=== PATIENT | male | born 1970 | race Caucasian/White ===

== ENCOUNTER 2017-04-16 16:57 | Emergency (ER) | payer BC, SELFPAY ==
[2017-04-16 17:56] VITALS: BP 123/80; PULSE 62; RESP 18; TEMP 36.3; O2SAT 99; BMI 29.6
--- NOTE | 2017-04-16 18:04 | HMH.EDUTC ---
[facility] [place] Dis[place] Clinical Impression: Acute bronchitis Qualifiers: Bronchitis organism: unspecified organism Qualified Code(s): J20.9 - Acute bronchitis, unspecified Disposition: Home, Self-Care Condition on Discharge: Good Instructions: DI for Acute Bronchitis Additional Instructions: * start antibiotic tomorrow since no pharmacy open tonight and you preferred not to receive the first dose in clinic related to cost. Be sure to complete entire prescription even if feeling better. * Monitor Temp. Follow up if fever develops. * humidifier/vaporizer/hot steamy shower * Inhaler every 4-6 hours as needed like you have been doing. * Mucinex during the day for your cough and cough suppressant only at night. Be sure to drink lots of water. Insurance may not cover a prescription of mucinex. Might be cheaper to get 400mg tablets and take 2 tablets morning, midday and evening all with lots of water. * Tessalon Perles will not cause drowsiness but use at bedtime to help stop cough so that you can get some rest * Start steroid tomorrow since you had requested injection in clinic. Helps with inflammation therefore, cough and wheezing. Follow directions on package. Rvwd side effects. Pt reports they have taken them before. * Since you preferred to not have chest xray today, BE SURE, to follow up immediately with new, worsening or persisting symptoms. Prescriptions: Azithromycin [Z-David 250mg Tab] 250 mg PO UD DOSE PK #6 tab Benzonatate [Benzonatate 200mg Cap] 200 mg PO HS PRN #14 cap PRN Reason: Cough predniSONE [Deltasone 10mg tablet] 10 mg PO BID #8 tab Referrals: Felipe Nick MD [Primary Care Provider] - (Follow up IMMEDIATELY for new or worsening symptoms OR no noticeable improvement over the next 48-72 hours. 911 for difficulty breathing) Time of Disposition: 18:21 Medical Decision Making Vital Signs: 04/16/17 17:56 Temperature 97.4 F L Temperature Source Temporal Artery Scan Pulse Rate [Right Radial] 62 Respiratory Rate 18 Blood Pressure [Right Arm] 123/80 Blood Pressure Mean [Right Arm] 94 02 Sat by Pulse Oximetry 99 Oxygen Delivery Method Room Air Orders (Tests/Meds): ED MEDICATIONS Discontinued Medications Generic Name Dose Route Start Last Admin Trade Name Freq PRN Reason Stop Dose Admin Methylprednisolone Sodium Succinate 125 mg 04/16/17 18:15 Solu-Medrol 125mg/2ml Vial IM 04/16/17 18:16 ONCE ONE - Frankie Inquiry Pt receiving controlled substance: No [facility] [place] HPI - General Stated complaint: Chest Congestion Time Seen by Provider: 04/16/17 18:04 Mode of Arrival: Family Vehicle Source of Information: Patient, Parent(s) Limitations: No Limitations Description of Symptoms (Recalled from Triage Doc. by RN): PT C/O HEAD AND CHEST CONGESTION FOR 2 WEEKS. HEENT Symptoms (Recalled from RN notes): Yes (HEAD CONGESTION) Resp Symptoms (Recalled from RN notes): Yes (CHEST CONGESTION AND COUGH) Skin Symptoms (Recalled from RN notes): No MS Symptoms (Recalled from RN notes): No Functional Status (Recalled from RN notes): NA - History of Present Illness Provider Complaint: c/o cough now for nearly 2 weeks. Started with head cold and seemed to do well with antihistamines but since moving to chest approx one week ago, nothing helping. Allergy medications haven't helped. Albuterol inhaler (from previous illnesses. Denies COPD, asthma, lung problems) helps open airways, he breaths easier, gets out unknown color sputum but hours later, the same again . Nonsmoker. no fever. SOA with exertion at times. Intermittent wheezing. 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 - Related Data Previous Rx's Medication Instructions Recorded Azithromycin [Z-David 250mg Tab] 250 mg PO UD DOSE PK #6 tab 04/16/17 Benzonatate [Benzonatate 200mg Cap] 200 mg PO HS PRN #14 cap 04/16/17 predniSONE [Deltasone 10mg tablet] 10 mg PO BID #
--- NOTE | 2017-04-16 18:15 | ED_ITS ---
[facility] [place] Impression: Acute bronchitis Qualifiers: Bronchitis organism: unspecified organism Qualified Code(s): J20.9 - Acute bronchitis, unspecified Disposition: Home, Self-Care Condition on Discharge: Good Instructions: DI for Acute Bronchitis Additional Instructions: * start antibiotic tomorrow since no pharmacy open tonight and you preferred not to receive the first dose in clinic related to cost. Be sure to complete entire prescription even if feeling better. * Monitor Temp. Follow up if fever develops. * humidifier/vaporizer/hot steamy shower * Inhaler every 4-6 hours as needed like you have been doing. * Mucinex during the day for your cough and cough suppressant only at night. Be sure to drink lots of water. Insurance may not cover a prescription of mucinex. Might be cheaper to get 400mg tablets and take 2 tablets morning, midday and evening all with lots of water. * Tessalon Perles will not cause drowsiness but use at bedtime to help stop cough so that you can get some rest * Start steroid tomorrow since you had requested injection in clinic. Helps with inflammation therefore, cough and wheezing. Follow directions on package. Rvwd side effects. Pt reports they have taken them before. * Since you preferred to not have chest xray today, BE SURE, to follow up immediately with new, worsening or persisting symptoms. Prescriptions: Azithromycin [Z-David 250mg Tab] 250 mg PO UD DOSE PK #6 tab Benzonatate [Benzonatate 200mg Cap] 200 mg PO HS PRN #14 cap PRN Reason: Cough predniSONE [Deltasone 10mg tablet] 10 mg PO BID #8 tab Referrals: Felipe Nick MD [Primary Care Provider] - (Follow up IMMEDIATELY for new or worsening symptoms OR no noticeable improvement over the next 48-72 hours. 911 for difficulty breathing) Time of Disposition: 18:21 Medical Decision Making Vital Signs: 04/16/17 17:56 Temperature 97.4 F L Temperature Source Temporal Artery Scan Pulse Rate [Right Radial] 62 Respiratory Rate 18 Blood Pressure [Right Arm] 123/80 Blood Pressure Mean [Right Arm] 94 02 Sat by Pulse Oximetry 99 Oxygen Delivery Method Room Air Orders (Tests/Meds): ED MEDICATIONS Discontinued Medications Generic Name Dose Route Start Last Admin Trade Name Freq PRN Reason Stop Dose Admin Methylprednisolone Sodium Succinate 125 mg 04/16/17 18:15 Solu-Medrol 125mg/2ml Vial IM 04/16/17 18:16 ONCE ONE - Frankie Inquiry Pt receiving controlled substance: No [facility] [place] - General Stated complaint: Chest Congestion Time Seen by Provider: 04/16/17 18:04 Mode of Arrival: Family Vehicle Source of Information: Patient, Parent(s) Limitations: No Limitations Description of Symptoms (Recalled from Triage Doc. by RN): PT C/O HEAD AND CHEST CONGESTION FOR 2 WEEKS. HEENT Symptoms (Recalled from RN notes): Yes (HEAD CONGESTION) Resp Symptoms (Recalled from RN notes): Yes (CHEST CONGESTION AND COUGH) Skin Symptoms (Recalled from RN notes): No MS Symptoms (Recalled from RN notes): No Functional Status (Recalled from RN notes): NA - History of Present Illness Provider Complaint: c/o cough now for nearly 2 weeks. Started with head cold and seemed to do well with antihistamines but since moving to chest approx one week ago, nothing helping. Allergy medications haven't helped. Albuterol inhaler (from previous illnesses. Denies COPD, asthma, lung problems) helps open airways, he breaths easier, gets out unknow
[2017-04-16 18:39] VITALS: BP 120/78; PULSE 60; RESP 16; TEMP 36.1; O2SAT 99
== END 2017-04-16 18:49 | disposition home or self-care (01) ==
PROVIDERS: Emergency Provider Nurse Practitioner Family; Family Provider Family Medicine; PCP Family Medicine
DX: J20.9 Acute bronchitis, unspecified (principal); K21.9 Gastro-esophageal reflux disease without esophagitis; E78.5 Hyperlipidemia, unspecified
CPT/HCPCS: 96372; 99202

== ENCOUNTER → 2017-07-19 08:12 | Outpatient (CLI) | payer BC, SELFPAY | PROVIDERS: Family Provider Family Medicine; PCP Family Medicine; Visit Provider Family Medicine | DX: I20.8 Other forms of angina pectoris (principal); E78.2 Mixed hyperlipidemia | CPT/HCPCS: 93017 ==

== ENCOUNTER 2018-02-12 08:00 | Outpatient (RCR) | payer BC, SELFPAY ==
--- NOTE | 2017-12-18 08:46 | HMH.PTOPEV ---
PT Outpatient Evaluation Rehab PT Outpatient Evaluation Start: 12/18/17 08:09 Freq: Status: Active Protocol: Document 12/18/17 08:38 PHORANABELLE (Rec: 12/18/17 08:46 PHORNE [id number]) Electronically Signed By Freddy Khan, PT 12/18/17 08:38 Outpatient Therapy Subjective History Subjective History Pt is 47 yowm who presents with c/o pain in the right shld x ~ 1 yr, gradually worse . He reports pain increased with playing basketball or throwing, as well as housework and sleeping. He states, I sleep with my arm up over my head and that seems to bother it. He reports no pain at rest and no numbness or tingling in the right UE. Chief Complaint Pain Symptom Type Ache Sharp Symptoms Relieved By Rest/Positioning Symptoms Aggravated By Physical Activity Prior Functional Limitations Housework Sleeping Recreation Activity Current Functional Limitations Housework Sleeping Recreation Activity Symptom Description Intermittent Activity Dependent Level of pain today (0-10) 0 Pain scale - at its worst (0-10) 6 Shoulder/Elbow Eval Shoulder Objective Measurements Palpation Tenderness tenderness over the bicipital tendon right shoulder exam standard tenderness over the SA bursa shoulder right exam standard Posture Shoulder Posture Sitting Position (L) Rounded (R) Rounded Shoulder MMT Right Shoulder Abduction Strength Grade 4 Good Shoulder External Rotation Strength 4 Good Grade Shoulder Special Tests impingement sign present shoulder exam right standard Shoulder Cross-Over Impingement Test Negative Left Positive Right Shoulder Linder-Basilio Impingement Negative Left Test Positive Right Shoulder Neer Impingement Test Negative Left Negative Right Shoulder [place] Test Negative Left Negative Right Elbow Objective Measurements Outpatient Therapy Assessment Impairments Problems/Impairmments Palpation Tenderness Impaired Strength Impaired Household Care Impaired Recreational
--- NOTE | 2018-01-18 10:05 | HMH.RHREAS ---
Rehab Reassessment Rehab OP Re-assessment Start: 01/18/18 10:02 Freq: Status: Active Protocol: Document 01/18/18 10:02 DONALD (Rec: 01/18/18 10:05 DONALD [id number]) Electronically Signed By Freddy Khan, PT 01/18/18 10:02 Rehab Re-assessment Subjective Subjective Pt reports continued soreness, but less frequent than previously. Objective Objective Notes MMT right UE: ABD = 4+/5, IR = 4+/5, otherwise 5/5 throughout. Pain: 3/10 at worst. Assessment Progress Assessment Progressing as Expected Assessment Notes Continues to need further strengthening, but activity level and pain are improved. Patient goals met ST,2,4,[address] LT,2,3,4,5 Revised Goals none Plan Plan Continue per initial POC. Frequency of Therapy 2x/wk Duration of therapy 8 wks Time and Billing Re-Eval Time 15 Re-Eval Billing Units 1 PHYSICIAN CERTIFICATION: I certify the specified therapy services for Brian Dykes are required, authorized, and reviewed every 30 days.
== END 2018-02-12 08:05 | disposition home or self-care (01) ==
LOC: PT 08:00
PROVIDERS: Visit Provider Family Medicine
DX: M75.101 Unspecified rotator cuff tear or rupture of right shoulder, not specified as traumatic (principal)
CPT/HCPCS: 97010; 97014; 97016; 97033; 97035; 97110; 97163; 97164; G0283

== ENCOUNTER → 2018-06-26 08:02 | Outpatient (POV) | payer BC, SELFPAY | PROVIDERS: Visit Provider Dermatology | DX: Z00.00 Encounter for general adult medical examination without abnormal findings (principal) ==

== ENCOUNTER → 2019-02-19 08:04 | Outpatient (POV) | payer BC, SELFPAY | PROVIDERS: Visit Provider Dermatology | DX: Z00.00 Encounter for general adult medical examination without abnormal findings (principal) ==

== ENCOUNTER → 2020-03-31 14:15 | Outpatient (CLI) | payer BC, SELFPAY ==
--- NOTE | 2020-03-31 14:20 | XR_ITS ---
PROCEDURE: XR KNEE LT 3V CLINICAL INDICATION: LT KNEE SWELLING Left knee swelling, injured playing basketball COMPARISON: No exams were available for comparison FINDINGS: There is no fracture or dislocation. There is no compartmental narrowing seen on nonweightbearing x-ray views. There is no significant degenerative change. There is a moderate joint space effusion. IMPRESSION: Moderate joint space effusion. Dictated by: Heather Mixon 03/31/2020 16:38 Heather Mixon in [place] 03/31/2020 16:38
== END ==
PROVIDERS: PCP Family Medicine; Visit Provider Family Medicine
DX: M25.462 Effusion, left knee (principal)
CPT/HCPCS: 73562

== ENCOUNTER → 2020-06-23 15:43 | Outpatient (CLI) | payer BC, SELFPAY ==
--- NOTE | 2020-06-23 15:59 | XR_ITS ---
PROCEDURE: XR KNEE RT 3V CLINICAL INDICATION: RT ANTERIOR KNEE PAIN COMPARISON: CR XR KNEE LT 3V from 03/31/2020 FINDINGS: No acute fractures or dislocations. Bone density is normal. The joint spaces are preserved. There is suprapatellar joint effusion. Visualized soft tissues are otherwise unremarkable. IMPRESSION: Suprapatellar joint effusion. Otherwise unremarkable study. Dictated by: Brit Ding 06/23/2020 16:42 Brit Ding in OV 06/23/2020 16:42
== END ==
PROVIDERS: PCP Family Medicine; Visit Provider Family Medicine
DX: M25.561 Pain in right knee (principal)
CPT/HCPCS: 73562

== ENCOUNTER 2020-09-01 16:05 | Outpatient (RCR) | payer BC, SELFPAY ==
--- NOTE | 2020-09-01 17:09 | HMH.PTOPEV ---
PT Outpatient Evaluation Rehab PT Outpatient Evaluation Start: 09/01/20 16:31 Freq: Status: Active Protocol: Document 09/01/20 16:32 ALEXTRINI (Rec: 09/01/20 17:09 ADELSO [id number]) Electronically Signed By Jose Martin Childress, PT 09/01/20 16:32 Outpatient Therapy Subjective History Subjective History This is the initial Physical Therapy evaluation for la nena Dykes. Pt is a 50 y/o male referred to PT for c/o B knee pain. Pt rpeorts he regularly plays basketball at [employer] every month. Pt reports in March he played an uneventful game of basketball, but reports the next day his L knee was swollen and he had significant pain. Pt rpeorts knee improved and function returned. Pt states in April he played again w/out incident but reports the next day his R knee was swollen and painful . Pt reprots that the R>L knee has continued to be painful and feels full of pressure . Pt states he got COVID shots day prior to each knee swelling. Chief Complaint Pain,Stiff,Swelling Symptom Type Ache,Throb,Dull Symptoms Relieved By Rest/Positioning,Brace/Support Symptoms Aggravated By Physical Activity Prior Functional Limitations None Current Functional Limitations Standing,Squatting,Recreation Activity,Stairs Symptom Description Intermittent Hip/Knee Eval Gait Observation General Gait Pattern Observation No Deviations/Normal Assistive Device Assistive Devices None / NA Palpation Tenderness bilateral Knee Palpation Finding None/Normal Hip Palpation Findings None/Normal MMT Hip Strength Reason Not Measured WFL Knee Strength Reason Not Measured WFL ROM Hip ROM Reason Not Measured Within Functional Limits Knee ROM Reason Not Measured Within Functional Limits Special Tests Knee Apprehension Test Negative Left,Negative Right Knee Medial-Lateral Grind Test Negative Left,Negative Right Knee Valgus Stress Test Negative Left,Negative Right Knee Varus Stress Test Negative Left,Negative Right Knee Mauro Test Negative Left,Negative Right Patella Apprehension Test Negative Left,Negative Right Patellar Grind Test
== END 2020-09-01 16:10 | disposition home or self-care (01) ==
LOC: PT 16:05
PROVIDERS: PCP Family Medicine; Visit Provider Orthopaedic Surgery
DX: M17.11 Unilateral primary osteoarthritis, right knee (principal); M17.12 Unilateral primary osteoarthritis, left knee
CPT/HCPCS: 97110; 97163

== ENCOUNTER 2020-09-03 12:21 | Emergency (ER) | payer BC, SELFPAY ==
--- NOTE | 2020-09-03 12:36 | HMH.EDUTC ---
[facility] [place] Disposition Clinical Impression: Exposure to COVID-19 virus Disposition: Home, Self-Care Condition on Discharge: Good Instructions: Preventing the Spread of Coronavirus Discharge Instructions Additional Instructions: Drink plenty of fluids. Take tylenol for pain or fever. Return if you begin to have difficulty breathing. Follow up with your regular doctor. GO TO THE ER FOR ANY WORSENING SYMPTOMS Referrals: Felipe Nick MD [Primary Care Provider] - Time of Disposition: 12:36 Medical Decision Making - Medical Records Medical records reviewed: No: I reviewed the patient's medical records. - Frankie Inquiry Pt receiving controlled substance: No Vital Signs: 09/03/20 13:18 09/03/20 13:52 Temperature 98.4 F 98 F Temperature Source Oral Pulse Rate 95 H Pulse Rate [Left] 75 Respiratory Rate 16 16 Blood Pressure 139/81 Blood Pressure [Right Arm] 133/86 Blood Pressure Mean [Right Arm] 101 02 Sat by Pulse Oximetry 98 Oxygen Delivery Method Room Air [facility] [place] HPI - General Stated complaint: Covie test Time Seen by Provider: 09/03/20 13:30 - History of Present Illness Provider Complaint: Multiple members of his family have covid-19. He denies any symptoms so far. - Related Data Home Medications Medication Instructions Recorded Confirmed Fexofenadine HCl [Aretha 180 mg PO DAILY 11/18/18 08/25/20 Allergy] Montelukast Sodium [Singulair 10mg 10 mg PO PM 11/18/18 08/25/20 tablet] Pantoprazole Sodium [Protonix 40mg 40 mg PO DAILY 11/18/18 08/25/20 tablet] Rosuvastatin Calcium 5 mg PO HS 11/18/18 08/25/20 Allergies Allergy/AdvReac Type Severity Reaction Status Date / Time No Known Allergies Allergy Verified 09/03/20 13:23 [facility] History - Hepatitis A Screen Attestation statement:: This patient has been screened for Hepatitis A risk factors. I have reviewed the patient's past medical history: Yes Medical History: Reports:: Gastroesophageal Reflux Disease(GERD), Hyperlipidemia Denies:: Cancer, Diabetes Mellitus Type 1, Diabetes Mellitus Type 2, Hypertension, MRSA Other Medical History: Reports: Other Other Surgeries: Yes: Colonoscopy, Other Amputation: No Fractures: No - Social History Smoking Status: Never smoker Alcohol Intake: never Occupational Status: employed Family Hx:: No significant family history ROS Obtained: Yes All systems reviewed & no additional complaints - Constitutional Constitutional: Reports system reviewed and no additional complaints, except as docu - Eyes Eyes: Reports system reviewed and no additional complaints, except as docu - ENT Ears, Nose, Mouth, and Throat: Reports system reviewed and no additional complaints, except as docu - Cardiovascular Cardiovascular: Reports system reviewed and no additional complaints, except as docu - Respiratory Respiratory: Reports system reviewed and no additional complaints, except as docu - Gastrointestinal Gastrointestingal: Reports: system reviewed and no additional complaints, except as docu Physical Exam - General General appearance: alert, in no apparent distress - Head Head exam: atraumatic, normocephalic, normal inspection - Eye Eye exam: Present: normal appearance, PERRL, EOMI - ENT ENT exam: Present: normal exam, normal oropharynx, mucous membranes moist, TM's normal bilaterally, normal external ear exam - Neck Neck exam: Present: normal inspection, full ROM, trachea midline. Absent: meningismus, lymphadenopathy - Chest Chest inspection: Present: normal inspection, symmetric chest wall rise. Absent: tenderness - Respiratory Respiratory exam: Present: normal lung sounds bilaterally. Absent: respiratory distress - Cardiovascular Cardiovascular exam: Present: regular rate, normal rhythm. Absent: JVD - Abdominal Exam Abdominal exam: Present: soft, normal bowel sounds. Absent: distention, tenderness, guarding - Extremities Exam Extremit
[2020-09-03 13:18] VITALS: BP 133/86; PULSE 75; RESP 16; TEMP 36.9; O2SAT 98; BMI 30.5
[2020-09-03 13:52] VITALS: BP 139/81; PULSE 95; RESP 16; TEMP 36.6
--- NOTE | 2020-09-03 20:39 | PC.NURSE ---
relayed positive covid result to pt
== END 2020-09-03 13:52 | disposition home or self-care (01) ==
PROVIDERS: Emergency Provider Nurse Practitioner Family; PCP Family Medicine
DX: U07.1 COVID-19 (principal); K21.9 Gastro-esophageal reflux disease without esophagitis; E78.5 Hyperlipidemia, unspecified
CPT/HCPCS: 99202; G0463; U0003

== ENCOUNTER → 2020-12-12 19:00 | Outpatient (CLI) | payer BC, SELFPAY | PROVIDERS: PCP Family Medicine; Visit Provider Nurse Practitioner Family | DX: Z20.822 Contact with and (suspected) exposure to COVID-19 (principal) | CPT/HCPCS: C9803; U0003; U0005 ==

== ENCOUNTER → 2021-06-15 11:55 | Outpatient (CLI) | payer BC, SELFPAY ==
--- NOTE | 2021-06-15 | CA_ITS ---
FINAL REPORT TECHNIQUE: Color Doppler, duplex Doppler and compression sonography of the left lower extremity deep venous systems was performed. CLINICAL HISTORY: .Left foot tingling FINDINGS: There is no evidence of deep venous thrombosis from the level of the groin to the calf. The veins are patent and compressible. IMPRESSION: No evidence of deep venous thrombosis left lower extremity. Reviewed, Interpreted and Dictated by Daniel Johnson III, MD Transcribed by Vidhi Wynne Authenticated by Daniel Johnson III, MD on 06/15/2021 01:56:22 PM [facility]
== END ==
PROVIDERS: PCP Nurse Practitioner Family; Visit Provider Nurse Practitioner Family
DX: M79.605 Pain in left leg (principal)
CPT/HCPCS: 93971

== ENCOUNTER 2021-06-29 02:26 | Emergency (ER) | payer BC, SELFPAY ==
[2021-06-29 02:46] VITALS: BP 0/0; PULSE 0; RESP 0; TEMP -17.7; TEMP 0
== END 2021-06-29 03:11 | disposition left against medical advice (07) ==
PROVIDERS: Emergency Provider Emergency Medicine; PCP Family Medicine
DX: Z53.21 Procedure and treatment not carried out due to patient leaving prior to being seen by health care provider (principal)
CPT/HCPCS: 99211

== ENCOUNTER 2021-07-03 11:21 | Emergency (ER) | payer BC, SELFPAY ==
[2021-07-03 12:19] VITALS: BP 118/76; PULSE 90; RESP 19; TEMP 36.7; O2SAT 95; BMI 30.2
[2021-07-03 12:24] LABS: UTC Influenza A Antigen Negative (Negative)
[2021-07-03 12:25] LABS: UTC Influenza B Antigen Negative (Negative)
[2021-07-03 12:31] LABS: Strep Scrn Group A (Rapid) Negative (Negative)
--- NOTE | 2021-07-03 12:42 | HMH.EDUTC ---
[facility] [place] Impression: Left lower lobe pneumonia Qualifiers: Pneumonia type: due to unspecified organism Qualified Code(s): J18.9 - Pneumonia, unspecified organism Disposition: Home, Self-Care Condition on Discharge: Good Additional Instructions: Drink plenty of fluids. Take tylenol for pain or fever. Continue the prednisone and cefdinir as prescribed. Follow up with your regular doctor. GO TO THE ER FOR ANY WORSENING SYMPTOMS The cough medication (promethazine dm) will make you drowsy, so don't drive or operate heavy machinery after taking it. You must follow up with your primary care physician and have a repeat chest x-ray within the next 1 to 2 weeks. This is to make sure the pneumonia is getting better. Prescriptions: Albuterol Sulfate [Albuterol Sulfate Hfa] 2 puffs IH Q6HP PRN 30 Days #1 each PRN Reason: Shortness Of Breath Transmission Status: Received by [facility] Promethazine/Dextromethorphan [Promethazine-Dm Syrup] 5 ml PO Q6HP PRN #240 ml PRN Reason: Cough Transmission Status: Received by [facility] Referrals: Kerri Lombardo APRN [Primary Care Provider] - Time of Disposition: 13:26 Medical Decision Making - Medical Records Medical records reviewed: No: I reviewed the patient's medical records. - Frankie Inquiry Pt receiving controlled substance: No Vital Signs: 07/03/21 12:19 07/03/21 13:36 Temperature 98.1 F 98.1 F Temperature Source Oral Oral Pulse Rate 90 Pulse Rate [Left Radial] 90 Respiratory Rate 19 19 Blood Pressure 118/76 Blood Pressure [Right Arm] 118/76 Blood Pressure Mean [Right Arm] 90 02 Sat by Pulse Oximetry 95 - Lab Data Lab results reviewed: Yes: I reviewed the patient's lab results. Lab Results 07/03/21 12:13: Influenza Type A Ag Negative, Influenza Type B Ag Negative 07/03/21 12:14: Group A Strep Rapid Negative Orders (Tests/Meds): ED MEDICATIONS Discontinued Medications Generic Name Dose Route Start Last Admin Trade Name Freq PRN Reason Stop Dose Admin Ceftriaxone Sodium 1 gm 07/03/21 13:16 07/03/21 13:25 Ceftriaxone 1gm Vial IM 07/03/21 13:17 1 gm ONCE ONE Administration Lidocaine HCl 0 ml 07/03/21 13:16 07/03/21 13:25 Lidocaine 1% 5ml Pf Vial IM 07/03/21 13:17 2 ml ONCE ONE Administration ORDERS Category Date Time Status Strep Screen Confirmation Stat Micro 07/03/21 12:14 Received - Radiology Data #1 Image(s): Chest Image Reviewed: Yes I reviewed the patient's radiology image, Yes I have reviewed radiologist's interpretation [facility] [place] - General Stated complaint: soa, fever, chills Time Seen by Provider: 07/03/21 12:42 Mode of Arrival: Ambulatory Source of Information: Patient Limitations: No Limitations Description of Symptoms (Recalled from Triage Doc. by RN): pt here with c/o cough, fever, chills, shortness of air HEENT Symptoms (Recalled from RN notes): Yes Resp Symptoms (Recalled from RN notes): Yes Skin Symptoms (Recalled from RN notes): No MS Symptoms (Recalled from RN notes): No Functional Status (Recalled from RN notes): wnl - History of Present Illness Provider Complaint: He states that for the past 1 week he has had sinus congestion, chest congestion and a headache at times. He was seen by his pcp and he started cefdinir and a steroid dose pack yesterday, but last night he became more congested so he came here. - Related Data Home Medications Medication Instructions Recorded Confirmed Fexofenadine HCl [Aretha 180 mg PO DAILY 11/18/18 08/25/20 Allergy] Montelukast Sodium [Singulair 10mg 10 mg PO PM 11/18/18 08/25/20 tablet] Pantoprazole Sodium [Protonix 40mg 40 mg PO DAILY 11/18/18 08/25/20 tablet] Rosuvastatin Calcium 5 mg PO HS 11/18/18 08/25/20 Previous Rx's Medication Instructions Recorded Albuterol Sulfate [Albuterol 2 puffs IH Q6HP PRN 30 Days #1 each 07/03/21 Sulfate Hfa] Prometha
--- NOTE | 2021-07-03 12:46 | XR_ITS ---
PROCEDURE INFORMATION: Exam: XR Chest Exam date and time: 07/03/2021 12:46 PM Age: 51 years old Clinical indication: Cough; Additional info: Cough, congestion TECHNIQUE: Imaging protocol: XR of the chest. Views: 2 views. COMPARISON: CR CXR CHEST(2 VIEWS-NOT PORTABLE) 09/15/2016 8:08 AM FINDINGS: Lungs: Patchy left lower lobe region of consolidation. Pleural spaces: Unremarkable. No pleural effusion. No pneumothorax. Heart/Mediastinum: Unremarkable. No cardiomegaly. Bones/joints: Unremarkable. IMPRESSION: Left lower lobe region of consolidation. Findings compatible with pneumonia.
[2021-07-03 13:36] VITALS: BP 118/76; PULSE 90; RESP 19; TEMP 36.7
== END 2021-07-03 13:38 | disposition home or self-care (01) ==
PROVIDERS: Emergency Provider Nurse Practitioner Family; PCP Nurse Practitioner Family
DX: J18.9 Pneumonia, unspecified organism (principal); R51.9 Headache, unspecified; K21.9 Gastro-esophageal reflux disease without esophagitis; E78.5 Hyperlipidemia, unspecified; M79.10 Myalgia, unspecified site; Z20.822 Contact with and (suspected) exposure to COVID-19; Z79.899 Other long term (current) drug therapy
CPT/HCPCS: 71046; 87430; 87804; 96372; 99213; C9803; G0463; J0696; U0003; U0005

== ENCOUNTER 2022-01-23 10:06 | Emergency (ER) | payer BC, SELFPAY ==
[2022-01-23 11:00] VITALS: BP 135/88; PULSE 91; RESP 19; TEMP 36.8; O2SAT 98; BMI 28.8
[2022-01-23 11:13] LABS: Coronavirus 19, PCR Not Detected (NotDetected); Influenza A, PCR Not Detected (NotDetected); Influenza B, PCR Not Detected (NotDetected)
--- NOTE | 2022-01-23 11:23 | EXP.UTC ---
Discharge Plan Disposition Patient Disposition: Home, Self-Care Condition: Good Prescriptions Prescriptions: No Action promethazine-DM 120 ML syrup 5 ml PO Q6HP PRN (Reason: Cough) Qty: 240 0RF albuterol sulfate 8.5 GM HFA aerosol inhaler 2 puffs IH Q6HP PRN (Reason: Shortness Of Breath) 30 Days Qty: 1 5RF fexofenadine 180 MG tablet 180 mg PO DAILY pantoprazole 40 MG tablet,delayed release (DR/EC) 40 mg PO DAILY montelukast 10 MG tablet 10 mg PO PM rosuvastatin 5 MG tablet 5 mg PO HS Referrals Follow up/Referrals: Felipe Vargas MD [Primary Care Provider] - See instructions Activity Restrictions/Add. Instructions Additional Instructions/Restrictions: covid/flu swab was sent to lab, call later today for results. self isolate until test results are known to be negative No sign of a bacterial infection. Likely viral. Viruses can take 7-14 days to run their course. Nasal saline and bulb syringe or nose Ct to remove nasal drainage to help with nasal congestion. Hard to eat, drink, sleep with nasal congestion so important to keep this cleaned out. Monitor temp. Tylenol or Motrin as needed for pain or fever Encourage fluids, water, Gatorade, Powerade, Pedialyte if /toddler/child Warm salt water gargles Warm fluids Sore throat lozenges Sleep elevated Humidifier/vaporizer Follow-up immediately for new or worsening symptoms or no noticeable improvement over the next 48-72 hours. Clinical Impressions Clinical Impression: URI (upper respiratory infection) Instructions Patient Instructions: DI for Viral Upper Respiratory Infection -- Adult Discharge ED Provider: Cha ([facility] [place] General Stated complaint: head/chest congestion, MATHEW Mode of Arrival: Ambulatory Source of Information: Patient Limitations: No Limitations Time Seen by Provider: 01/23/22 11:24 Description of Symptoms (Recalled from Triage Doc. by RN): PATIENT C/O FEVER, HEADACHE, AND CHEST/HEAD CONGESTION X 2 DAYS HEENT Symptoms (Recalled from RN notes): Yes Resp Symptoms (Recalled from RN notes): No Skin Symptoms (Recalled from RN notes): No MS Symptoms (Recalled from RN notes): No Functional Status (Recalled from RN notes): WNL History of Present Illness Provider Complaint: 51 yr old male presents for fever, congestion, chest congestion and cough for 2 days Related Data Home Medications Medication Instructions Recorded Confirmed fexofenadine 180 mg tablet 180 mg PO DAILY ALLERGIES 11/18/18 08/25/20 montelukast 10 mg tablet 10 mg PO PM Asthma 11/18/18 08/25/20 pantoprazole 40 mg tablet,delayed 40 mg PO DAILY GERD 11/18/18 08/25/20 release rosuvastatin 5 mg tablet 5 mg PO HS Cholesterol 11/18/18 08/25/20 Previous Rx's Medication Instructions Recorded albuterol sulfate 90 mcg/actuation 2 puffs inhalation Q6HP PRN 07/03/21 aerosol inhaler Shortness Of Breath 30 days #1 ea promethazine-DM 6.25 mg-15 mg/5 mL 5 ml PO Q6HP PRN Cough #240 mL 07/03/21 oral syrup Allergies Allergy/AdvReac Type Severity Reaction Status Date / Time No Known Allergies Allergy Verified 07/03/21 12:21 Worker's Comp Is this a Worker's Comp case?: No [facility] Disclaimer: The information contained in this section may have been updated after the patient was seen, as this information can be updated by other users. 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
[2022-01-23 11:33] VITALS: BP 135/88; PULSE 91; RESP 19; TEMP 36.8; O2SAT 98
== END 2022-01-23 11:45 | disposition home or self-care (01) ==
PROVIDERS: Emergency Provider Nurse Practitioner Family; PCP Internal Medicine Adolescent Medicine
DX: J06.9 Acute upper respiratory infection, unspecified (principal)
CPT/HCPCS: 99212; C9803; G0463; U0003; U0005

== ENCOUNTER 2022-04-03 22:21 | Emergency (ER) | payer BC, SELFPAY ==
[2022-04-03 22:23] VITALS: BP 152/89; PULSE 78; RESP 16; TEMP 37; O2SAT 98; BMI 29.6
--- NOTE | 2022-04-03 23:40 | PC.NURSE ---
Mery rounded on patient at this time and updated on POC
--- NOTE | 2022-04-03 23:45 | PC.NURSE ---
MD speaking with patient at this time
--- NOTE | 2022-04-04 00:17 | PC.NURSE ---
discussion with patient took place and he decided at this time he would leave without being seen or any further work-up. Verbal instructions were given to patient and he left at this time.
[2022-04-04 00:18] VITALS: BP 158/80; PULSE 80; RESP 16; TEMP 36.9; O2SAT 100
== END 2022-04-04 00:21 | disposition left against medical advice (07) ==
LOC: ER 22:44
PROVIDERS: Emergency Provider Emergency Medicine; PCP Internal Medicine Adolescent Medicine
DX: Z53.21 Procedure and treatment not carried out due to patient leaving prior to being seen by health care provider (principal); S50.12XA Contusion of left forearm, initial encounter
CPT/HCPCS: 99211

== ENCOUNTER → 2022-04-26 19:26 | Outpatient (CLI) | payer BC, SELFPAY | PROVIDERS: PCP Internal Medicine Adolescent Medicine; Visit Provider Nurse Practitioner Family | DX: G47.33 Obstructive sleep apnea (adult) (pediatric) (principal); R40.0 Somnolence; R06.83 Snoring | CPT/HCPCS: G0399 ==

== ENCOUNTER 2023-03-14 13:03 | Outpatient (CLI) | payer BC, SELFPAY ==
--- NOTE | 2023-03-14 | US_ITS ---
FINAL REPORT TECHNIQUE: Ultrasound images of the kidneys and bladder were obtained. CLINICAL HISTORY: . FINDINGS: The right kidney measures 12.3 cm in length. It is normal in echogenicity. There is no hydronephrosis. There is an exophytic cyst of the upper pole right kidney measuring 3 cm. No solid mass lesion identified. The left kidney measures 12.3 cm in length. It is normal in echogenicity. There is no hydronephrosis. IMPRESSION: No evidence of obstruction or significant renal atrophy. Reviewed, Interpreted and Dictated by Nancy Short MD Transcribed by Susi Grijalva Authenticated and [facility]
--- NOTE | 2023-03-14 | US_ITS ---
FINAL REPORT TECHNIQUE: Limited sonographic images of the bilateral soft tissue head and neck were obtained with attention to the parotid glands. CLINICAL HISTORY: Palpable area on left neck for a couple of years. FINDINGS: The bilateral parotid glands are homogeneous without mass. The glands appear normal in size. There is an oval soft tissue nodule superficial to the left parotid measuring 16 x 12 x 4 mm probably representing a mildly enlarged lymph node, less likely lobule of subcutaneous fat. A normal sized 7 mm lymph node overlies the right parotid gland. IMPRESSION: Lymph nodes as detailed above. Reviewed, Interpreted and Dictated by Nancy Short MD Transcribed by Susi Grijalva Authenticated and [facility]
== END 2023-03-14 23:59 ==
LOC: RAD 13:03
PROVIDERS: PCP Internal Medicine Adolescent Medicine; Visit Provider Nurse Practitioner Family
DX: R22.1 Localized swelling, mass and lump, neck (principal); N18.9 Chronic kidney disease, unspecified
CPT/HCPCS: 76536; 76770

== ENCOUNTER 2023-03-28 07:47 | Outpatient (CLI) | payer BC, SELFPAY ==
--- NOTE | 2023-03-28 07:51 | US_ITS ---
FINAL REPORT CLINICAL HISTORY: NECK MASS FINDINGS: Ultrasound guided left neck lymph node biopsy. HISTORY: Left neck nodule PROCEDURE: After informed consent was obtained and a time-out was performed, the patient was prepped and draped in usual sterile fashion over the left neck. Utilizing local anesthesia and sterile technique with a 25-gauge needle, access to the lesion was obtained. Four passes were made. The patient received no conscious sedation. The patient tolerated procedure well and left the department in good condition. IMPRESSION: Status post ultrasound guided biopsy of a left neck lymph node without immediate complication. Reviewed, Interpreted and Dictated by Daniel Johnson III, MD Transcribed by ELIZABETH Vera Authenticated and [facility]
== END 2023-03-28 23:59 ==
LOC: RAD 07:48
PROVIDERS: PCP Internal Medicine Adolescent Medicine; Visit Provider Nurse Practitioner Family
DX: R22.1 Localized swelling, mass and lump, neck (principal)
CPT/HCPCS: 10005; 76536

== ENCOUNTER 2023-04-20 17:37 | Outpatient (CLI) | payer BC, SELFPAY ==
--- NOTE | 2023-04-20 | XR_ITS ---
PROCEDURE INFORMATION: Exam: XR Chest Exam date and time: 04/20/2023 5:46 PM Age: 52 years old Clinical indication: Cough; Additional info: Moderate asthma with exacerbation. Cough x 1 week TECHNIQUE: Imaging protocol: Radiologic exam of the chest. Views: 2 views. COMPARISON: CR XR CHEST 2V 03/07/2021 12:46 FINDINGS: Lungs: Mild lingula opacities. Pleural spaces: Unremarkable. No pleural effusion. No pneumothorax. Heart/Mediastinum: Unremarkable. No cardiomegaly. Bones/joints: Unremarkable. IMPRESSION: Mild lingula opacities. Please exclude infection clinically. Consider a 6 week follow-up chest radiograph.
== END 2023-04-20 23:59 ==
PROVIDERS: PCP Internal Medicine Adolescent Medicine; Visit Provider Physician Assistant
DX: J45.41 Moderate persistent asthma with (acute) exacerbation (principal); R05.9 Cough, unspecified
CPT/HCPCS: 71046

== ENCOUNTER 2023-10-03 13:35 | Outpatient (CLI) | payer BC, SELFPAY ==
--- NOTE | 2023-10-03 13:36 | US_ITS ---
FINAL REPORT TECHNIQUE: Real-time grayscale and color ultrasound of the soft tissues of the neck was performed. CLINICAL HISTORY: left neck mass COMPARISON: None FINDINGS: Ultrasound images of the area of concern were obtained. Color Doppler images were submitted. There is a 1.5 cm lymph node adjacent to the parotid gland which appears benign. The submandibular and parotid glands are otherwise unremarkable. IMPRESSION: Benign-appearing lymph node as above. Reviewed, Interpreted and Dictated by Martinez Bui MD Transcribed by Michell Guo Authenticated and [facility]
== END 2023-10-03 23:59 | disposition home or self-care (01) ==
LOC: RAD 13:36
PROVIDERS: PCP Internal Medicine Adolescent Medicine; Visit Provider Student in an Organized Health Care Education/Training Program
DX: R22.1 Localized swelling, mass and lump, neck (principal)
CPT/HCPCS: 76536

== ENCOUNTER 2024-03-24 10:02 | Emergency (ER) | payer BC, SELFPAY ==
--- NOTE | 2024-03-24 10:34 | ED_ITS ---
Discharge Plan Disposition Patient Disposition: Home, Self-Care Condition: Good Prescriptions Prescriptions: New methylprednisolone 4 mg Tablets,Dose Pack 4 mg PO DIRECTED 6 Days Qty: 21 0RF Rx Instructions: Take 1 pack as directed for 6 days benzonatate 100 mg capsule 100 mg PO TIDP PRN (Reason: Cough) Qty: 30 0RF azithromycin [Zithromax] 250 mg tablet 250 mg PO UD DOSE PK Qty: 6 0RF Rx Instructions: Take two (2) tablets today, then one (1) tablet days #2 thru #5 No Action fluticasone propionate 50 mcg/actuation spray,suspension 1 spray intranasal DAILY rosuvastatin 20 mg tablet 20 mg PO DAILY pantoprazole 40 MG tablet,delayed release (DR/EC) 40 mg PO DAILY montelukast 10 MG tablet 10 mg PO PM Referrals Follow up/Referrals: Felipe Vargas MD [Primary Care Provider] - See instructions Activity Restrictions/Add. Instructions Additional Instructions/Restrictions: Drink plenty of fluids. Take tylenol or ibuprofen for pain or fever. Take the medications as directed. Follow up with your regular doctor. GO TO THE ER FOR ANY WORSENING SYMPTOMS Don't start the oral steroids (medrol dose pack) until tomorrow since you had the shot here Clinical Impressions Clinical Impression: Acute bronchitis Qualifiers: Bronchitis organism: unspecified organism Qualified Code(s): J20.9 - Acute bronchitis, unspecified Instructions Patient Instructions: Acute Bronchitis, DI for Acute Bronchitis Print Language Print Language: [place] Islander Discharge ED Provider: Bc [place] [facility] General Stated complaint: congestion, cough Time Seen by Provider: 03/24/24 10:33 Related Data Home Medications ?Medication ?Instructions ?Recorded ?Confirmed montelukast 10 mg tablet 10 mg PO PM Asthma 11/18/18 03/24/24 pantoprazole 40 mg tablet,delayed 40 mg PO DAILY GERD 11/18/18 03/24/24 release fluticasone propionate 50 1 spray intranasal DAILY 07/21/22 03/24/24 mcg/actuation nasal spray,suspension rosuvastatin 20 mg tablet 20 mg PO DAILY 04/11/23 03/24/24 Previous Rx's ?Medication ?Instructions ?Recorded azithromycin 250 mg tablet 250 mg PO UD DOSE PK #6 tabs 03/24/24 (Zithromax) benzonatate 100 mg capsule 100 mg PO TIDP PRN Cough #30 caps 03/24/24 methylprednisolone 4 mg tablets in 4 mg PO DIRECTED 6 days #21 tabs 03/24/24 a dose pack Allergies Allergy/AdvReac Type Severity Reaction Status Date / Time No Known Allergies Allergy Verified 10/10/23 13:12 [facility] Disclaimer: The information contained in this section may have been updated after the patient was seen, as this information can be updated by other users. Medical History Mass of left side of neck History of gastroesophageal reflux (GERD) Asthma Hyperlipidemia Surgical History History of splenectomy History of appendectomy Family History Other Cancer Diabetes Heart attack Social History Smoking Status: Never smoker alcohol intake: never substance use type: denies use current occupational status: employed Travel in the last 8 weeks: None household members: spouse housing: house marital status: Have you lived/traveled outside US in past 30 days?: No Contact w/someone who lives/traveled outside US past 30 days?: No Exposure to someone with infectious disease in past 14 days?: No Do you have a fever (greater than 100.4 F or 38 C)?: No Have you tested positive for COVID-19: No Exposed to someone with COVID-19 in past 14 days?: No Do you have a sore throat?: No Do you have a cough?: Yes Do you have any weakness?: No Do you have any diarrhea?: No Are you experiencing any unusual bleeding?: No Do you have any muscle aches/pain?: No Do you have any abdominal pain?: No Are you experiencing loss of taste or smell?: No ROS Obtained: Yes All systems reviewed & no additional complaints except as documented Constitutional Constitutional: Reports poor appetite Eyes Eyes: Reports system reviewed and no additional complaints, except as documented ENT Ears, Nose, Mouth, and Throat: Reports as per HPI Cardiovascular Cardiovascular: Reports system reviewed and no additional complaints, except as documented and Denies chest pain Respiratory Respiratory: Denies shortness of breath, Reports chest congestion, Reports cough, Denies stridor and Denies wheezing Gastrointestinal Gastrointestingal: Reports system reviewed and no additional complaints, except as documented; Denies abdominal pain, diarrhea or vomiting Musculoskeletal Musculoskeletal: Reports system reviewed and no additional complaints, except as documented and Denies arthralgias Integumentary/Breasts Skin/Breast: Reports system reviewed and no additional complaints, except as documented and Denies rash Neurologic Neurologic: Denies paresthesias Allergic/Immunologic Allergic/Immunologic: Denies wheezing Physical Exam General General appearance: alert and in no apparent distress Eye Eye exam: Present normal appearance, PERRL and EOMI ENT ENT exam: Present mucous membranes moist and normal external ear exam Expanded ENT Exam External ear exam: Present normal external inspection TM/Canal exam: Bilateral TM: erythema and bulging Nose exam: Absent sinus tenderness Nasal speculum exam: Bilateral: normal Mouth exam: Present normal external inspection; Absent drooling Teeth exam: Present normal inspection Throat exam: Present tonsillar erythema and tonsillomegaly Neck Neck exam: Present normal inspection, full ROM and trachea midline; Absent tenderness, lymphadenopathy or thyromegaly Chest Chest inspection: Present normal inspection and symmetric chest wall rise; Absent tenderness or rash Respiratory Respiratory exam: Present normal lung sounds bilaterally; Absent respiratory distress, wheezes, stridor or accessory muscle use Cardiovascular Cardiovascular exam: Present regular rate, normal rhythm and normal heart sounds Abdominal Exam Abdominal exam: Present soft; Absent distention, tenderness, guarding, rebound or rigidity Extremities Exam Extremities exam: Present normal inspection, full ROM and normal capillary refill; Absent tenderness or calf tenderness Back Exam Back exam: Present normal inspection and full ROM; Absent tenderness Neurological Exam Neurological exam: Present alert and oriented X3 Psychiatric Psychiatric exam: Present normal affect and normal mood Skin Skin exam: Present warm, dry, intact and normal color Lymphatic Lymphatic Findings: no adenopathy Medical Decision Making Medical Records Medical records reviewed: No I reviewed the patient's medical records. Screening: Per USPSTF and CDC recommendations, given the prevalence of disease in our region, it is our hospital?s policy to screen for HIV and viral Hepatitis for all patients aged 18 and over and those with ongoing risk factors. Frankie Inquiry Pt receiving controlled substance: No Lab Data Lab results reviewed: Yes I reviewed the patient's lab results.
[2024-03-24 10:42] VITALS: BP 115/67; PULSE 64; RESP 20; TEMP 36.8; O2SAT 97; BMI 31.3
[2024-03-24] MEDS: DEXAMETHASONE 4MG/ML 1ML VIAL 8 MG IM (11:13)
[2024-03-24 11:37] VITALS: BP 115/67; PULSE 64; RESP 20; TEMP 36.8
== END 2024-03-24 11:39 | disposition home or self-care (01) ==
PROVIDERS: Emergency Provider Nurse Practitioner Family; PCP Internal Medicine Adolescent Medicine
DX: J20.9 Acute bronchitis, unspecified (principal)
CPT/HCPCS: 99212; G0381; J1100

== ENCOUNTER 2024-04-11 13:30 | Outpatient (CLI) | payer BC, SELFPAY ==
--- NOTE | 2024-04-11 13:38 | US_ITS ---
FINAL REPORT TECHNIQUE: Limited sonographic images were obtained of the soft tissues in the left neck at the area of interest. CLINICAL HISTORY: MASS LT SIDE NECK COMPARISON: 10/03/2023 FINDINGS: Directed ultrasound images of the left neck show a periparotid lymph node measuring 21 x 12 x 5 mm, previously 15 x 12 x 4 mm. This is slightly increased since the prior exam. No new sites of adenopathy identified. The salivary glands are unremarkable. IMPRESSION: Mildly enlarged nonspecific lymph node in the region of palpable abnormality slightly increased in size remains nonspecific. Continued imaging surveillance is recommended in 3 months. Reviewed, Interpreted and Dictated by Nancy Short MD Transcribed by Joleen Lorenz Authenticated and [facility]
== END 2024-04-11 23:59 | disposition home or self-care (01) ==
LOC: RAD 13:31
PROVIDERS: PCP Nurse Practitioner Family; Visit Provider Nurse Practitioner Family
DX: R22.1 Localized swelling, mass and lump, neck (principal)
CPT/HCPCS: 76536

== ENCOUNTER 2024-05-17 09:48 | Outpatient (CLI) | payer BC, SELFPAY ==
--- NOTE | 2024-05-17 09:50 | CT_ITS ---
FINAL REPORT CLINICAL HISTORY: MASS, LUMP LEFT SIDE OF NECK, BB PLACED ON AREA (enlarged periparotid lymph node) COMPARISON: 04/11/2024 ultrasound neck soft tissue FINDINGS: CT NECK WITH CONTRAST TECHNIQUE: Axial CT with IV contrast administration. This study was performed with techniques to keep radiation doses as low as reasonably achievable, (ALARA). Individualized dose reduction techniques using automated exposure control or adjustment of mA and/or kV according to the patient's size were employed. FINDINGS: There is mild mucosal thickening of the inferior bilateral maxillary sinuses with a sinuses otherwise clear. There is no adenopathy seen adjacent to the parotid glands. Marker overlies the inferior left parotid gland without associated soft tissue mass. There may be a subtle 11 mm lipoma which is difficult to distinguish from the surrounding fatty subcutaneous tissues. No adenopathy. Salivary glands are normal. Larynx is unremarkable. The thyroid gland is atrophic. IMPRESSION: No suspicious lesion. Possible small lipoma in the area of interest. Reviewed, Interpreted and Dictated by Nancy Short MD Transcribed by Michell Guo Authenticated and [facility]
[2024-05-17] MEDS: IOPAMIDOL-370 (76%);100ML BOTTLE 75 ML IV (10:06)
[2024-05-17] MEDS: SODIUM CHLORIDE 0.9% 10ML SYR (RAD ONLY) 10 ML IV (10:06)
== END 2024-05-17 23:59 | disposition home or self-care (01) ==
LOC: RAD 09:48
PROVIDERS: PCP Nurse Practitioner Family; Visit Provider Student in an Organized Health Care Education/Training Program
DX: R22.1 Localized swelling, mass and lump, neck (principal)
CPT/HCPCS: 70491; Q9967

== ENCOUNTER → 2024-05-30 06:48 | Outpatient (CLI) | payer BC, SELFPAY ==
--- OUTSIDE RECORDS SUMMARY | 2024-05-30 06:50 | XMS_ITS | Continuity of Care Document ---
Author Organization [facility] [place] [address] [address] Address [address] [place] [address] Care Team Providers Care Environmental Economist Name Role Phone ED COBIAN Primary Care Provider Assessment No assessment recorded. Plan of Treatment Reminders Order Date Submit Date Provider Last Modified By Organization Details Last Modified Time Details Appointments None record ed. Lab None record ed. Referral None record ed. Procedures None record ed. Surgeries None record ed. Imaging None record ed. Medication Orders None record ed. Patient TargetsNo targets recorded. Patient Instructions Encounter Date Encounter Id Patient Instructions Last Modified By Organization Details Last Modified Time 04/26/[id number] Ne ck with contrast 2. Discussed Left parotidectomy if needed pending CT results 3. F/u with results [email or web address] Not available 04/26/2024 08:46:21 53-year-old I previously have seen in our PSA clinic seen for follow-up on the left parotid area nodule. Previous ultrasounds that demonstrated a likely lymph node in the area. Fine-needle aspirate was nondiagnostic. Follow-up ultrasound done a month or so ago showed that it increased in size and the largest dimension by about 5 mm compared to the last ultrasound 6 months ago. At this point he thinks he would like it removed both for diagnostic and therapeutic purposes. He does have a family history of non-Hodgkin's lymphoma which she is worried about. Based on my review of the ultrasound images I think this is actually superficial to the parotid as I can see a fat plane between the mass and the gland. Would like to confirm this a bit better with a contrasted CT scan. Pending the results of that we then discussed excisional biopsy versus if it is indeed actually in the parotid a superficial parotidectomy. [email or web address] Not available 04/26/2024 12:14:25 Reason for Referral None Reported. Results Created Date Observation Date Name Description Value Unit Range Abnormal Flag Note LastModifiedBy Organization Detail LastModifiedTime 04/26/19 25 03/14/2023 CT, neck, soft tissu e, w/ contr ast No observ ation record ed. [email or web address] Not Available 2024 14:55:08 04/27/19 25 10/03/2023 US, neck No observ ation record ed. BARCODE Not Available 2024 12:22:24 04/27/19 25 03/28/2023 fine needl e aspir ation No observ ation record ed. BARCODE Not Available 2024 12:22:24 04/27/19 25 03/28/2023 US, neck No observ ation record ed. BARCODE Not Available 2024 12:22:24 04/27/19 25 03/14/2023 US, neck No observ ation record ed. BARCODE Not Available 2024 12:22:25 04/27/19 25 04/11/2024 US, neck No observ ation record ed. BARCODE Not Available 2024 12:22:25 Result Notes None recorded. Medical Equipment None Reported. Allergies No known drug allergies Medications Name Sig Start Date Stop Date Status Note LastModified by Organization Details LastModified Time fluticason e 250 mcg-salmet nicolasa 50 mcg/dose blistr powdr for inhalation active Not Available Not Available N ot Available ketoconazo le 2 % shampoo active Not Available Not Available Not Available azithromyc in 250 mg tablet 04/26 completed Not Available Not Available Not Available benzonatat e 100 mg capsule 04/26 completed Not Available Not Available Not Available pantoprazo le 40 mg tablet,del ayed release active Not Available Not Available Not Available montelukas t 10 mg tablet active Not Available Not Available Not Available methylpred nisolone 4 mg tablets in a dose pack 04/26 completed Not Available Not Available Not Available albuterol sulfate HFA 90 mcg/actuat ion aerosol inhaler active Not Available Not Available Not Available fluticason e propionate 50 mcg/actuat ion nasal spray,susp ension active Not Available Not Available Not Available amoxicilli n 875 mg-potassi um clavulanat e 125 mg tablet 04/26 completed Not Available Not Available Not Available rosuvastat in 20 mg tablet active Not Available Not Available Not Available Singulair active Not Available Not [place] ilable Not Available Aretha active Medicatio n Descripti on: fexofenad ine; Route:ora l; refills:0 Not Available Not Available Not Available pantoprazo le Daily active Frequency : daily;Med ication Descripti on: pantopraz ole; Dosage:1; refills:0 ; Quantity: 30 Not Available Not Available Not Available Advair Diskus active Not Available Not Available Not Available Vytorin 04/26 completed Medicatio n Descripti on: ezetimibe -simvasta tin; Route:ora l; refills:0 Not Available Not Available Not Available Vitals Date Recorded Body weight Body mass index (BMI) Body height Body temperature Systolic blood pressure Diastolic blood pressure Provider Name and Address Organization Details Last Updated DateTime 5 55589.2 2 g 30.7 kg/m2 172.72 cm 97.3 [degF] 135 mm[Hg] 81 mm[Hg] [facility] Social History None recorded. Functional Status None recorded. Mental Status None recorded. Family History Nothing Reported. Medical History No medical history recorded. Past Encounters Encounter ID Performer Location Encounter Start Date Encounter Closed Date Diagnosis/Indication Diagnosis SNOMED-CT Code Diagnosis ICD10 Code Diagnosis Note [id number] MD [facility] [address] [place] [address] 04/26/2024 08:13:50 04/26/2024 08:56:19 Mass of left parotid gland [id number] R22.1 mass in the left tail of parotid. Deviated nasal septum 12 [id number] J34.2 Health Concerns Section Related Observation LastModified by Organization Detai ls LastModified Time None Recorded Concern Status LastModified by Organization Details LastModified Time None Recorded Payers None recorded. Notes Date Note Type Note Provider Name and Address Organization Details Recorded Time 04/26/2024 text/html Brian comes in today for an evaluation of a cyst on the neck.-Pt was seen at [facility] for a left parotid mass in 2023-18mo+ Hx of left parotid mass, approx. 5mm growth in last 8 mo.-Family Hx of hearing loss.-Pt's father passed from non hodgkins lymphoma at age 56- CT has not been completed RIKA HERNANDEZ MD [address] [place] [address], [id number], [facility] 04/26/2024 12:14:34
--- OUTSIDE RECORDS SUMMARY | 2024-05-30 06:50 | XMS_ITS | Data Portability ---
Author Organization [facility] Address [address] [facility] [address] [place] [address] Care Team Providers Care Dipper Operator Name Role Phone DE COBIAN Primary Care Provider Assessment No assessment [...] By Organization Details Last Modified Time 04/26/[id number] Ne ck with contrast [...] actually in the parotid a superficial parotidectomy. [email or web address] Not available 04/26/2024 12:14:25 Reason for Referral [...] Available 2024 12:22:25 Result Notes None recorded. Procedures Surgical History None recorded. Imaging Results Imaging Date Name Status LastModified by Organiz ation Details LastModified Time 03/14/2023 CT, neck, soft tissue, w/ contrast completed [email or web address] Information not available 05/01/2024 14:55:08 10/03/2023 US, neck completed [facility] Information no t available 04/26/2024 12:22:24 03/28/2023 fine needle aspiration completed [facility] Information not available 04/26/2024 12:22:24 03/28/2023 US, neck completed [facility] Information no t available 04/26/2024 12:22:24 03/14/2023 US, neck completed [facility] Information no t available 04/26/2024 12:22:25 04/11/2024 US, neck completed [facility] Information no t available 04/26/2024 12:22:25 Procedure Notes None recorded. Medical Equipment None Reported. [...] Address Organization Details Last Updated DateTime 5 04462.2 2 g 30.7 kg/m2 172.72 cm 97.3 [degF] 135 mm[Hg] 81 mm[Hg] Long [facility] 5 08:24:11 Social History None recorded. Functional Status None recorded. Mental Status None recorded. Family History Nothing Reported. Medical History No medical history recorded. Past Encounters Encounter ID Performer Location Encounter Start Date Encounter Closed Date Diagnosis/Indication Diagnosis SNOMED-CT Code Diagnosis ICD10 Code Diagnosis Note [id number] RIKA HERNANDEZ MD [facility] [address] [place] [address] 04/26/2024 08:13:50 04/26/2024 08:56:19 Mass of left parotid gland 9119546918 0807634 R22.1 mass in the left tail of parotid. Deviated nasal septum 12 4062169 J34.2 Health Concerns Section Related Observation LastModified by Organization Detai ls LastModified Time None Recorded Concern Status LastModified by Organization Details LastModified Time None Recorded Advance Directives Directive None Recorded Payers None recorded. Notes Date Note Type Note Provider Name and Address Organization Details Recorded Time 04/26/2024 text/html Brian comes in today for an evaluation of a cyst on the neck.-Pt was seen at [facility] for a left parotid mass in 2023-18mo+ Hx of left parotid mass, approx. 5mm growth in last 8 mo.-Family Hx of hearing loss.-Pt's father passed from non hodgkins lymphoma at age 56- CT has not been completed RIKA HERNANDEZ MD [address] [facility] [place], [address], [facility] 04/26/2024 12:14:34
--- OUTSIDE RECORDS SUMMARY | 2024-05-30 06:50 | XMS_ITS ---
Author Organization Unknown Medications Medication Instructions Effective Dates (start - stop) Status montelukast 10 MG Oral Tablet 04-11-1400:00:00.000+00:00 - Completed montelukast 10 MG Oral Tablet 07-03-16:00:00.000+00:00 - Completed montelukast 10 MG Oral Tablet 05-10-11:00:00.000+00:00 - Completed montelukast 10 MG Oral Tablet 20 07-04-08:00:00.000+00:00 - Completed montelukast 10 MG Oral Tablet 06-05-19:00:00.000+00:00 - Completed montelukast 10 MG Oral Tablet 06-07-15:00:00.000+00:00 - Completed montelukast 10 MG Oral Tablet 04-09-10:00:00.000+00:00 - Completed fluticasone propionate 0.05 MG/ACTUAT Metered Dose Nasal Armstrong 0901-27-24L13:00:00.000+00:0 0 - Completed montelukast 10 MG Oral Tablet 05-06-17:00:00.000+00:00 - Completed montelukast 10 MG Oral Tablet 04-12-18:00:00.000+00:00 - Completed montelukast 10 MG Oral Tablet 04-01-14:00:00.000+00:00 - Completed pimecrolimus 10 MG/ML Topica l Cream 4016-89-71I16:00:00.000+00:0 0 - Completed nystatin 020131 UNT/ML Oral Suspension 5837-45-42E64:00:00.000+00:0 0 - Completed montelukast 10 MG Oral Tablet 05-08-08:00:00.000+00:00 - Completed montelukast 10 MG Oral Tablet 03-02-09:00:00.000+00:00 - Completed fluticasone propionate 0.05 MG/ACTUAT Metered Dose Nasal Armstrong 4168-36-87E24:00:00.000+00:0 0 - Completed fluticasone propionate 0.05 MG/ACTUAT Metered Dose Nasal Armstrong 8110-58-92D74:00:00.000+00:0 0 - Completed rosuvastatin calcium 10 MG O ral Tablet 4157-20-14B01:00:00.000+00:0 0 - Completed rosuvastatin calcium 10 MG O ral Tablet 5990-87-21O54:00:00.000+00:0 0 - Completed rosuvastatin calcium 10 MG O ral Tablet 4709-89-56B22:00:00.000+00:0 0 - Completed rosuvastatin calcium 10 MG O ral Tablet 8325-25-76S42:00:00.000+00:0 0 - Completed rosuvastatin calcium 10 MG O ral Tablet 5864-19-07C66:00:00.000+00:0 0 - Completed rosuvastatin calcium 10 MG O ral Tablet 4470-52-94V69:00:00.000+00:0 0 - Completed ketoconazole 20 MG/ML Medica humberto [place] 7650-36-38E75:00:00.000+00:0 0 - Completed ketoconazole 20 MG/ML Medica humberto [place] 1143-18-24N51:00:00.000+00:0 0 - Completed rosuvastatin calcium 10 MG O ral Tablet 9216-96-95R94:00:00.000+00:0 0 - Completed ketoconazole 20 MG/ML Medica humberto [place] 3915-15-95G11:00:00.000+00:0 0 - Completed fluticasone propionate 0.05 MG/ACTUAT Metered Dose Nasal Armstrong 5291-18-23O18:00:00.000+00:0 0 - Completed fluticasone propionate 0.05 MG/ACTUAT Metered Dose Nasal Armstrong 7429-99-36O05:00:00.000+00:0 0 - Completed fluticasone propionate 0.05 MG/ACTUAT Metered Dose Nasal Armstrong 5735-45-11X30:00:00.000+00:0 0 - Completed rosuvastatin calcium 10 MG O ral Tablet 6986-54-32K13:00:00.000+00:0 0 - Completed rosuvastatin calcium 10 MG O ral Tablet 7786-69-46W84:00:00.000+00:0 0 - Completed rosuvastatin calcium 10 MG O ral Tablet 9936-04-15N07:00:00.000+00:0 0 - Completed rosuvastatin calcium 10 MG O ral Tablet 9009-78-29G45:00:00.000+00:0 0 - Completed rosuvastatin calcium 10 MG O ral Tablet 7818-98-69G16:00:00.000+00:0 0 - Completed 60 ACTUAT fluticasone propio karin 0.25 MG/ACTUAT / salmeterol 0.05 MG/ACTUAT Dry Powder Inhaler [Advair] 2717-02-36Q34:00:00.000+00:0 0 - Completed 60 ACTUAT fluticasone propio karin 0.25 MG/ACTUAT / salmeterol 0.05 MG/ACTUAT Dry Powder Inhaler [Advair] 7454-57-93S01:00:00.000+00:0 0 - Completed 60 ACTUAT fluticasone propio karin 0.25 MG/ACTUAT / salmeterol 0.05 MG/ACTUAT Dry Powder Inhaler [Advair] 0527-76-13J84:00:00.000+00:0 0 - Completed 60 ACTUAT fluticasone propio karin 0.25 MG/ACTUAT / salmeterol 0.05 MG/ACTUAT Dry Powder Inhaler [Advair] 1389-63-94P91:00:00.000+00:0 0 - Completed 60 ACTUAT fluticasone propio karin 0.25 MG/ACTUAT / salmeterol 0.05 MG/ACTUAT Dry Powder Inhaler [Advair] 4946-16-72H85:00:00.000+00:0 0 - Completed 60 ACTUAT fluticasone propio karin 0.25 MG/ACTUAT / salmeterol 0.05 MG/ACTUAT Dry Powder Inhaler [Advair] 9621-30-13Y55:00:00.000+00:0 0 - Completed Patient Care team information Name Category Status Period Participants - - Proposed period not known -
== END ==
LOC: SL 06:48
PROVIDERS: PCP Specialist; Visit Provider Specialist
DX: G47.33 Obstructive sleep apnea (adult) (pediatric) (principal)
CPT/HCPCS: G0399

== ENCOUNTER 2024-12-05 10:15 | Outpatient (CLI) | payer BC, SELFPAY ==
--- NOTE | 2024-12-05 10:30 | US_ITS ---
FINAL REPORT CLINICAL HISTORY: 6 month f/u for mass on the left side of the neck COMPARISON: 04/11/2024 FINDINGS: Limited sonographic images were obtained of the soft tissues of the left neck at the area of reported palpable abnormality. There is normal appearance of the left parotid and submandibular glands. There is an enlarged lymph node in the region of palpable abnormality again noted measuring 12 x 12 x 4 mm. This previously measured 21 x 12 x 5 mm and is improved since the previous exam. No new lesions identified. IMPRESSION: Improved appearance of left neck lymph node of interest. No further follow-up considered indicated unless lesion progresses clinically. Reviewed, Interpreted and Dictated by Nancy Short MD Transcribed by Michell Guo Authenticated and [facility]
--- OUTSIDE RECORDS SUMMARY | 2024-12-05 10:46 | XMS_ITS | Encounter Summary ---
Author Organization Healthcare Address [address] [place] [address] Care Team Providers Care Horse Riding Coach Or Instructor Name Role Phone Felipe Nick MD Primary Care Provider Encounter Details Date Type Department Care Team (Late st Contact Info) Description 06/08/2022 Community [facility] [address] [place] [address] Mickie Roemro MD [address] [place] [address] Obstructive sleep apnea (adult) (pediatric) (Primary Dx) Social History Tobacco Use Types Packs/Day Years Used Date Smoking Tobacco: Never Smokeless Tobacco: Never Sex and Gender Information Value Date Recorded Sex Assigned at Male 02/16/2021 6:10 PM EST Legal Sex Male 7:31 PM EDT Gender Identity Male 02/16/2021 6:10 PM EST Sexual Orientation Not on file documented as of this encounter Plan of Treatment Not on file documented as of this encounter Visit Diagnoses Diagnosis Obstructive sleep apnea (adult) (pediatric)- Primary documented in this encounter Care Teams Horse Riding Coach Or Instructor Relationship Specialty Start Date End Date Felipe Nick MD [address] [place] [address] PCP - General 02/04/21 documented as of this encounter
--- OUTSIDE RECORDS SUMMARY | 2024-12-05 10:47 | XMS_ITS | Clinical Summary ---
Author Organization [facility] Address [address] [place] [address] Care Team Providers Care Manager Application Name Role Phone Unavailable Primary Care Provider Unavailabl e Social History Tobacco Use Types Packs/Day Years Used Date Smoking Tobacco: Never Assessed Abuse Screen Answer Date Recorded Unsafe at Home or Work/School Not on file Feels Threatened by Someone? Not on file 10/2022 Does Anyone Keep You from Co ntacting Others or Doint Things Outside the Home? Not on file 11/21/2022 Physical Sign of Abuse Present Not on file 1 Housing Stability Answer Date Recorded Current Living Arrangements Not on file 10/2022 Potentially Unsafe Housing Conditions Not on sidney e 11/21/2022 Family and Community Support Answer Luther e Recorded Help with Day-to-Day Activities Not on file 11/21/2022 Lonely or Isolated Not on file 11/21/2022 Employment Answer Date Recorded Do you want help finding or keeping work or a jody b? Not on file 11/21/2022 Disabilities Answer Date Recorded Concentrating, Remembering, or Making Decisions Difficulty Not on file 11/21/2022 Doing Errands Independently Difficulty Not on fi le 11/21/2022 Education Answer Date Recorded Help with school or training? Not on file Preferred Language Not on file 11/21/2022 Sex and Gender Information Value Date Recorded Sex Assigned at Not on file Legal Sex Male 1:34 PM EDT Gender Identity Not on file Sexual Orientation Not on file Plan of Treatment Health Maintenance Due Date Last Done Comments ANNUAL PHYSICAL 1970 HEPATITIS C SCREENING 1970 TDAP/TD VACCINES (1 - Tdap) 1989 COLOGUARD 05/05/2015 COLON CANCER SCREENING 5 YEAR SIGMOIDOSCOPY 05/05/2015 COLONOSCOPY 05/05/2015 COLORECTAL CANCER SCREENING 05/05/2015 CT COLONOGRAPHY 05/05/2015 FECAL OCCULT BLOOD TEST 05/05/2015 FIT Testing (1 year) 05/05/2015 Pneumococcal Vaccine 50+ (1 of 1 - PCV) 2020 ZOSTER VACCINE (1 of 2) 2020 INFLUENZA VACCINE 09/13/2024
--- OUTSIDE RECORDS SUMMARY | 2024-12-05 10:47 | XMS_ITS | Data Portability ---
Author Organization [facility] [place] [facility] Address [address] [facility] [address] [place] [address] Care Team Providers Care Setter Cold Rolling Machine Name Role Phone DE COBIAN Primary Care Provider Assessment No assessment recorded. Plan of Treatment Reminders Order Date Submit Date Provider Last Modified By Organization Details Last Modified Time Details Appointments [facility] 15 025 07:30AM RIKA HERNANDEZ MD Not available Not available Not available Lab None record ed. Referral None record ed. Procedures None record ed. Surgeries None record ed. Imaging None record ed. Medication Orders None record ed. Patient TargetsNo targets recorded. Patient Instructions Encounter Date Encounter Id Patient Instructions Last Modified By Organization Details Last Modified Time 04/26/[id number] Ne ck with contrast [...] actually in the parotid a superficial parotidectomy. [email or web address] Not available 04/26/2024 12:14:25 Reason for Referral [...] index (BMI) Body height Body temperature Systolic And Diastolic Provider Name and Address Organization Details Last Updated DateTime 04/26/2024 26609.22 g 30.7 kg/m2 172.72 cm 97.3 [degF] 135/81 mm[Hg] Long Womack [facility] 08:24:11 Social History None recorded. Functional Status None recorded. Mental Status None recorded. Family History Nothing Reported. Medical History No medical history recorded. Past Encounters Encounter ID Performer Location Encounter Start Date Encounter Closed Date Diagnosis/Indication Diagnosis SNOMED-CT Code Diagnosis ICD10 Code Diagnosis IMO Codes Diagnosis Note [id number] RIKA HERNANDEZ MD [place] [facility] [address] [place] [address] 04/26/2024 08:13:50 04/26/2024 08:56:19 Mass of left parotid gland 9009290524 2324803 R22.1 mass in the left tail of parotid. Deviated nasal septum 12 7451271 J34.2 Health Concerns Section Related Observation LastModified by Organization Detai ls LastModified Time None Recorded Concern Status LastModified by Organization Details LastModified Time None Recorded Advance Directives Directive None Recorded Payers Insurance Date Sequence Insurance Name Policy Number Policy Mendieta Covered Member ID Mendieta Member ID Guarantor Name 10/11/2024 1 [place] [employer] [employer] [id number] Ramona Flores Jania [id number] Brian Rodriguez Jania Notes Date Note Type Note Provider Name and Address Organization Details Recorded Time 04/26/2024 text/html ROS as noted in the HPI Brian comes in today for an evaluation of a cyst on the neck.-Pt was seen at [facility] for a left parotid mass in 2023-18mo+ Hx of left parotid mass, approx. 5mm growth in last 8 mo.-Family Hx of hearing loss.-Pt's father passed from non hodgkins lymphoma at age 56- CT has not been completed RIKA HERNANDEZ MD [facility] [place], [address], [facility] - [facility] 04/26/2024 12:14:34
--- OUTSIDE RECORDS SUMMARY | 2024-12-05 10:47 | XMS_ITS | Clinical Summary ---
Author Organization Healthcare Address [address] [place] [address] Care Team Providers Care Construction Crew Member Name Role Phone Felipe Nick MD Primary Care Provider [phone] Allergies No known active allergies Medications Rosuvastatin Calcium 5 MG capsule sprinkle Act ekta pantoprozole (Protonix) Active montelukast (Singulair) 10 MG tablet Active fluticasone-salmet nicolasa (Advair Diskus) 250-50 MCG/DOSE diskus inhaler Active fexofenadine (Aretha) 180 MG tablet Active Fluticasone Furoate 50 MCG/ACT aerosol powder Activ e pantoprazole (Protonix) 40 MG EC tablet 08/23/2022 Active Active Problems No known active problems Social History Tobacco Use Types Packs/Day Years Used Date Smoking Tobacco: Never Smokeless Tobacco: Never Tobacco Cessation:Counseling Given: Not Answered Sex and Gender Information Value Date Recorded Sex Assigned at Male 02/16/2021 6:10 PM EST Legal Sex Male 7:31 PM EDT Gender Identity Male 02/16/2021 6:10 PM EST Sexual Orientation Not on file Last Filed Vital Signs Vital Sign Reading Time Taken Comments Blood Pressure 107/71 02/29/2024 3:23 PM EST Pulse 73 02/29/2024 3:23 PM EST Temperature 35.9 C (96.6 F) 02/29/2024 3:23 PM EST Respiratory Rate - - Oxygen Saturation 94% 02/29/2024 3:23 PM EST Inhaled Oxygen Concentration - - Weight 93.4 kg (206 lb) 02/29/2024 3:23 PM EST Height 172.7 cm (5' 8 ) 02/29/2024 3:23 PM EST Body Mass Index 31.32 02/29/2024 3:23 PM EST Plan of Treatment Health Maintenance Due Date Last Done Comments Dental Oral Exam 1970 Dental Prophylaxis 1970 Dental X-Ray: Bitewings 1970 Dental X-Ray: Full Mouth 1970 [facility]-Depression Screening 1970 [facility]-HIV Screening 1970 [facility]-Hepatitis C Screening 1970 [facility]-Infant/Child/Adol SDOH Screenings 1970 [facility]- SDOH Screenings 1988 [facility]-Adult SDOH Screenings 1988 [facility]-Hepatitis B Vaccines (1 of 3 - 19+ 3-dose series) 1989 [facility]-DTaP,Tdap,and Td Vaccines (1 - Tdap) 04/17/1996 04/16/1996 [facility]-Pneumococcal Vaccine: 50+ Years (1 of 1 - PCV) 2020 [facility]-Zoster Vaccines (1 of 2) 2020 [id number] Vaccine (3 - 2024- season) 2024 04/03/2020, 03/04/2020 [facility]-Influenza Vaccine (#1) 2024 12/19/2019, [facility]-Obesity Intervention Completed 025, 02/01/2024, 12/28/2023, Additional history exists HPV Vaccines Aged Out No longer eligi ble based on patient's age to complete this topic [facility]-HIB Vaccines Aged Out No longer e ligible based on patient's age to complete this topic [facility]-Hepatitis A Vaccines Aged Out No longer eligible based on patient's age to complete this topic [facility]-IPV Vaccines Aged Out No longer e ligible based on patient's age to complete this topic [facility]-Rotavirus Vaccines Aged Out No lo nger eligible based on patient's age to complete this topic Insurance ANTHEM Care Teams Construction Crew Member Relationship Specialty Start Date End Date Felipe Nick MD [address] [facility] [place] [address] PCP - General 02/04/21
== END 2024-12-05 23:59 | disposition home or self-care (01) ==
LOC: RAD 10:16
PROVIDERS: PCP Nurse Practitioner Family; Visit Provider Student in an Organized Health Care Education/Training Program
DX: R22.1 Localized swelling, mass and lump, neck (principal)
CPT/HCPCS: 76536